=== PATIENT | male | born 1970 | race African-American/Black ===

== ENCOUNTER 2021-04-21 08:40 | Emergency (ER) | payer OTHER ==
[~2021-04-21] VITALS: Ht 185.4 cm; Wt 80.0 kg
[~2021-04-21 08:40] MED LIST: DOCU-138 PO; GABA100C MT; IRON1CAP28 MT; OMEP40CA20 MT
[2021-04-21 09:11] VITALS: BP 105/68
[2021-04-21] MEDS ORDERED: MECLIZINE 25MG TABLET PO ONE (10:00)
[2021-04-21 11:13] LABS: BASOPHILS % 1.1 % (0.0-2.0); EOSINOPHILS % 0.6 % (0.0-5.0); HEMATOCRIT. 33.8 % (42.0-52.0); HEMOGLOBIN. 11.1 g/dL (14.0-18.0); MEAN CORPUSCULAR HEMOGLOBIN 29.6 pg (28.0-32.0); MEAN CORPUSCULAR VOLUME 90.3 fL (80.0-94.0); MEAN PLATELET VOLUME 8.1 fl (7.4-10.4); MONOCYTES % 9.3 % (2.0-8.0); PLATELET 625 x1000/uL (130-400); RED BLOOD CELL COUNT 3.74 mill/uL (4.7-6.1)
[2021-04-21 11:17] LABS: CHLORIDE 105 mEq/L (98-107)
[2021-04-21] MEDS ORDERED: SODIUM CHLORIDE 0.9% 1,000 ML IV ONE (14:00)
[2021-04-21] MEDS ORDERED: ONDANSETRON HCL 4MG/2ML INJ IV ONE (14:00)
[2021-04-21] MEDS ORDERED: MECLIZINE 25MG TABLET PO NR (15:18)
[2021-04-21] MEDS ORDERED: ONDA4TAB11 PO (16:16)
[2021-04-21] MEDS ORDERED: MECL-159 MT (16:16)
== END 2021-04-21 17:05 | disposition home or self-care (01) ==
LOC: ER 08:40
DX: R42 Dizziness and giddiness (principal); R11.2 Nausea with vomiting, unspecified; E11.9 Type 2 diabetes mellitus without complications; E78.00 Pure hypercholesterolemia, unspecified; Z20.822 Contact with and (suspected) exposure to COVID-19
CPT/HCPCS: 36415; 70450; 71045; 80053; 84484; 85025; 93005; 96361; 96374; 99285; J2405; J7030; J8597